=== PATIENT | male | born 1965 | race Caucasian/White ===

== ENCOUNTER 2016-10-30 14:45 | Emergency (ER) | payer OTHER ==
[~2016-10-30] VITALS: Ht 175.3 cm; Wt 57.4 kg
[~2016-10-30 14:45] MED LIST: ONDA1TAB16 PO; TRAM50 PO
[2016-10-30 14:51] VITALS: BP 103/82; PULSE 100; RESP 16; TEMP 98.2; O2SAT 96
[2016-10-30 15:44] VITALS: BP 125/83; PULSE 81; RESP 18; O2SAT 97
[2016-10-30] MEDS ORDERED: MEGE40TA PO (15:46)
[2016-10-30] MEDS ORDERED: METH40TA PO (15:46)
[2016-10-30] MEDS ORDERED: PANT40TA3 PO (15:46)
[2016-10-30 16:09] LABS: AUTOMATED NEUTROPHIL # 9.4 TH/MM3 (1.8-7.7); BASOPHIL # 0.1 TH/MM3 (0-0.2); BASOPHIL % 0.8 % (0.0-2.0); EOSINOPHIL % 0.1 % (0.0-4.0); HEMATOCRIT 49.5 % (39.0-51.0); HEMO FLAGS DIFF FINAL; LYMPH % 19.5 % (9.0-44.0); LYMPHOCYTE # 2.6 TH/MM3 (1.0-4.8); MEAN CELL VOLUME 90.3 FL (80.0-100.0); MEAN CORPUSCULAR HGB CONC 33.2 % (32.0-36.0); MONO % 7.3 % (0.0-8.0); NEUT % 72.3 % (16.0-70.0); PLATELET COUNT 228 TH/MM3 (150-450); RED BLOOD COUNT 5.48 MIL/MM3 (4.50-5.90); RED CELL DISTRIBUTION WIDTH 13.1 % (11.6-17.2); WHITE BLOOD COUNT 13.1 TH/MM3 (4.0-11.0)
[2016-10-30 16:28] LABS: CHLORIDE 94 MEQ/L (98-107); POTASSIUM 3.5 MEQ/L (3.5-5.1); SODIUM (NA) 137 MEQ/L (136-145)
[2016-10-30 16:31] LABS: ANION GAP 9 MEQ/L (5-15); BICARBONATE 33.7 MEQ/L (21.0-32.0)
[2016-10-30 16:32] LABS: BLOOD UREA NITROGEN 28 MG/DL (7-18)
[2016-10-30 16:34] LABS: ALT (GPT) 61 U/L (12-78); AST (GOT) 22 U/L (15-37)
[2016-10-30 16:35] LABS: GLOMERULAR FILTRATION RATE 71 ML/MIN (>89)
[2016-10-30 16:36] LABS: TOTAL BILIRUBIN ADULT 1.2 MG/DL (0.2-1.0)
[2016-10-30 16:37] LABS: ALKALINE PHOSPHATASE 51 U/L (45-117)
--- NOTE | 2016-10-30 16:37 | RADHPO ---
EXAM DATE/TIME: 10/30/2016 16:15 [facility] COMPARISON: No previous studies available for comparison. INDICATIONS : Palpitaions. MEDICAL HISTORY : None. SURGICAL HISTORY : None. ENCOUNTER: Initial ACUITY: 4 - 6 days PAIN SCORE: 0/10 LOCATION: Bilateral chest FINDINGS: A single view of the chest demonstrates the lungs to be symmetrically aerated without evidence of mas s, infiltrate or effusion. The cardiomediastinal contours are unremarkable. Osseous structures are intact. CONCLUSION: No acute disease. Tyler Langston MD on October 30, 2016 at 16:35 Board Certified Radiologist. This report was verified electronically.
[2016-10-30] MEDS ORDERED: IOHEXOL 350 MG/ML 10 ML VIAL (for RAD DIAG) IV ONE (16:48)
[2016-10-30 17:01] LABS: BLOOD, URINE NEG (NEG); GLUCOSE,URINE NEG (NEG); KETONE, URINE NEG (NEG); NITRITE,URINE NEG (NEG)
[2016-10-30 17:16] LABS: URINE COLOR YELLOW (YELLW/STRAW)
[2016-10-30 17:18] LABS: COMMENT (UR) CULT NOT INDICATED; CULTURE IF INDICATED CULT NOT INDICATED; SQUAMOUS EPITHELIAL CELL URINE 0-5 /hpf (0-5)
--- NOTE | 2016-10-30 17:53 | RADHPO ---
EXAM DATE/TIME: 10/30/2016 16:39 [facility] COMPARISON: No previous studies available for comparison. INDICATIONS : Vomiting. IV CONTRAST: 95 cc Omnipaque 350 (iohexol) IV ORAL CONTRAST: No oral contrast ingested. RADIATION DOSE: 5.71 CTDIvol (mGy) MEDICAL HISTORY : Hepatitis C. SURGICAL HISTORY : None. ENCOUNTER: Initial ACUITY: 3 days PAIN SCALE: 0/10 LOCATION: abdomen/pelvis TECHNIQUE: Volumetric scanning of the abdomen and pelvis was performed. Using automated exposure control and ad justment of the mA and/or kV according to patient size, radiation dose was kept as low as reasonably achievable to obtain optimal diagnostic quality images. FINDINGS: LOWER LUNGS: The visualized lower lungs are clear. Powderly fluid collection in the right cardiophrenic angle may re present unusual pericardial cyst. LIVER: Homogeneous density without lesion. There is no dilation of the biliary tree. No calcified gallston es. SPLEEN: Normal size without lesion. PANCREAS: Within normal limits. KIDNEYS: Normal in size and shape. There is no mass, stone or hydronephrosis. ADRENAL GLANDS: Within normal limits. VASCULAR: There is no aortic aneurysm. BOWEL/MESENTERY: Mild air distention of the colon in a nonobstructed pattern. No pneumoperitoneum.. There is no free intraperitoneal air or fluid. ABDOMINAL WALL: Within normal limits. RETROPERITONEUM: There is no lymphadenopathy. BLADDER: No wall thickening or mass. REPRODUCTIVE: Within normal limits. INGUINAL: There is no lymphadenopathy or hernia. MUSCULOSKELETAL: Within normal limits for patient age. CONCLUSION: 1. A 6.4 x 2.3 x 4.9 cm fluid collection in the right cardiophrenic angle may represent an unusual pe ricardial cyst. 2. Mild air distention of the colon in a nonobstructed pattern. Moderate amount of stool in the proxi mal colon 3. Otherwise, nothing acute. Aditya Diaz MD on October 30, 2016 at 17:43 Board Certified Radiologist. This report was verified electronically.
[2016-10-30 18:19] VITALS: BP 105/69; PULSE 86; RESP 18; O2SAT 95
--- NOTE | 2016-10-30 18:40 | PD ---
HPI Chief Complaint: Abdominal Pain Time Seen by Provider: 15:37 Travel History International Travel<30 days: No Contact w/Intl Traveler<30days: No Traveled to known affect area: No History of Present Illness HPI 51-year-old male presents with upper abdominal pain, weight loss and general ill feeling for the past couple of weeks. He states he went to his gastrointestinal specialist Dr. gonzalez who he follows with his hepatitis and they advised him to come here for further testing. They recommended blood work and CT imaging of the abdomen. He states that he is having no other significant complaints. Quality is pressure. Severity is moderate. He denies specific modifying factors. He denies recurrent history of this. PFS Past Medical History Hepatitis: Yes (C) Past Surgical History Other Surgery: Yes (LEFT HAND) Social History Alcohol Use: No Tobacco Use: Yes (1 PPD) Substance Use: Yes (occas clara) Allergies-Medications (Allergen,Severity, Reaction): Coded Allergies: No Known Allergies (Unverified , 10/30/16) Reported Meds & Prescriptions Reported Meds & Active Scripts Active Reported Megestrol (Megestrol Acetate) 40 Mg Tab 40 Mg PO TID Pantoprazole (Pantoprazole Sodium) 40 Mg Tab 40 Mg PO DAILY Methadone (Methadone HCl) 40 Mg Tab 110 Mg PO DAILY Review of Systems Except as stated in HPI: all other systems reviewed are Neg Physical Exam Narrative GENERAL: Thin, well-developed patient. No apparent distress SKIN: Warm and dry. HEAD: Normocephalic and atraumatic. EYES: No injection or drainage. ENT: No nasal drainage noted. NECK: Supple, trachea midline. CARDIOVASCULAR: Regular rate and rhythm RESPIRATORY: No increased effort. No accessory muscle use. GASTROINTESTINAL: Abdomen soft, mild tenderness periumbilical area, nondistended. No rebound EXTREMITIES: No edema. NEUROLOGICAL: Awake and alert. Motor and sensory grossly within normal limits. Normal speech. Data Data Last Documented VS Vital Signs Date Time Temp Pulse Resp B/P Pulse Ox O2 Delivery O2 Flow Rate FiO2 10/30/16 18:19 86 18 105/69 95 Room Air 10/30/16 14:51 98.2 Orders Complete Blood Count With Diff (10/30/16 15:37) Comprehensive Metabolic Panel (10/30/16 15:37) Urinalysis - C+S If Indicated (10/30/16 15:37) Lipase (10/30/16 15:37) Ct Abd/Pel W Iv Contrast(Rout) (10/30/16 ) Iv Access Insert/Monitor (10/30/16 15:37) Oximetry (10/30/16 15:37) Chest, Single Ap (10/30/16 ) Iohexol 350 Inj (Omnipaque 350 Inj) (10/30/16 16:48) Echo 2d Comp W/Dopp(Routine) (10/30/16 ) Labs Laboratory Tests Test 10/30/16 10/30/16 16:00 16:30 White Blood Count 13.1 TH/MM3 Red Blood Count 5.48 MIL/MM3 Hemoglobin 16.4 GM/DL Hematocrit 49.5 % Mean Corpuscular Volume 90.3 FL Mean Corpuscular Hemoglobin 30.0 PG Mean Corpuscular Hemoglobin 33.2 % Concent Red Cell Distribution Width 13.1 % Platelet Count 228 TH/MM3 Mean Platelet Volume 8.4 FL Neutrophils (%) (Auto) 72.3 % Lymphocytes (%) (Auto) 19.5 % Monocytes (%) (Auto) 7.3 % Eosinophils (%) (Auto) 0.1 % Basophils (%) (Auto) 0.8 % Neutrophils # (Auto) 9.4 TH/MM3 Lymphocytes # (Auto) 2.6 TH/MM3 Monocytes # (Auto) 1.0 TH/MM3 Eosinophils # (Auto) 0.0 TH/MM3 Basophils # (Auto) 0.1 TH/MM3 CBC Comment DIFF FINAL Differential Comment Sodium Level 137 MEQ/L Potassium Level 3.5 MEQ/L Chloride Level 94 MEQ/L Carbon Dioxide Level 33.7 MEQ/L Anion Gap 9 MEQ/L Blood Urea Nitrogen 28 MG/DL Creatinine 1.10 MG/DL Estimat Glomerular Filtration 71 ML/MIN Rate Random Glucose 98 MG/DL Calcium Level 9.0 MG/DL Total Bilirubin 1.2 MG/DL Aspartate Amino Transf 22 U/L (AST/SGOT) Alanine Aminotransferase 61 U/L (ALT/SGPT) Alkaline Phosphatase 51 U/L Total Protein 7.3 GM/DL Albumin 3.5 GM/DL Lipase 73 U/L Urine Color YELLOW Urine Turbidity CLEAR Urine pH 7.0 Urine Specific [place] 1.005 Urine Protein NEG mg/dL Urine Glucose (UA) NEG mg/dL Urine Ketones NEG mg/dL Urine Occult Blood NEG Urine Nitrite NEG Urine Bilirubin NEG Urine Leukocyte Esterase NEG Urine Squamous Epithelial 0-5 /hpf Cells Microscopic Urinalysis Comment CULT NOT INDICATED MDM Medical Decision Making Medical Screen Exam Complete: Yes Emergency Medical Condition: Yes Medical Record Reviewed: Yes (past history confirmed) Interpretation(s) CBC & BMP Diagram 10/30/16 16:00 Last 24 hours Impressions Chest X-Ray 10/30/16 0000 Signed Impressions: Service Date/Time: Sunday, October 30, 2016 16:15 - CONCLUSION: No acute disease. Tyler Langston MD Abdomen/Pelvis CT 10/30/16 0000 Signed Impressions: Service Date/Time: Sunday, October 30, 2016 16:39 - CONCLUSION: 1. A 6.4 x 2.3 x 4.9 cm fluid collection in the right cardiophrenic angle may represent an unusual pericardial cyst. 2. Mild air distention of the colon in a nonobstructed pattern. Moderate amount of stool in the proximal colon 3. Otherwise, nothing acute. Aditya Diaz MD Differential Diagnosis Renal failure, mass, diverticulitis, stone, UTI... Narrative Course Will check blood work, chest x-ray, CT scan abdominal pelvis and reevaluate CT abdomen shows possible pericardial cyst will discuss with cardiothoracic surgeon, patient updated Patient updated awaiting echocardiogram Physician Communication Physician Communication dr stephens states to check stat echo dr wilcox to reeval after stat echo Cally Leija MD Oct 30, 2016 18:40
[2016-10-30 19:43] VITALS: BP 101/68; PULSE 63; O2SAT 96
--- NOTE | 2016-10-30 20:20 | PD ---
Physical Exam Time Seen by Provider: 20:16 Narrative It is now 8:16 PM and the echocardiogram has been done and will be read by Dr. Anderson. The patient came in because of his weight loss, he was sent in by Dr. Dela Cruz. The pericardial cyst has nothing to do with the patient's weight loss. The CT scan of the abdomen/pelvis also shows mild distention of the colon in a nonobstructed pattern and moderate stool in the proximal colon. Nothing acute is noted on the CAT scan. The patient should follow-up with Dr. Dela Cruz. Data Data Last Documented VS Vital Signs Date Time Temp Pulse Resp B/P Pulse Ox O2 Delivery O2 Flow Rate FiO2 10/30/16 19:43 63 101/68 96 Room Air 10/30/16 18:19 18 10/30/16 14:51 98.2 Orders Complete Blood Count With Diff (10/30/16 15:37) Comprehensive Metabolic Panel (10/30/16 15:37) Urinalysis - C+S If Indicated (10/30/16 15:37) Lipase (10/30/16 15:37) Ct Abd/Pel W Iv Contrast(Rout) (10/30/16 ) Iv Access Insert/Monitor (10/30/16 15:37) Oximetry (10/30/16 15:37) Chest, Single Ap (10/30/16 ) Iohexol 350 Inj (Omnipaque 350 Inj) (10/30/16 16:48) Echo 2d Comp W/Dopp(Routine) (10/30/16 ) Labs Laboratory Tests Test 10/30/16 10/30/16 16:00 16:30 White Blood Count 13.1 TH/MM3 Red Blood Count 5.48 MIL/MM3 Hemoglobin 16.4 GM/DL Hematocrit 49.5 % Mean Corpuscular Volume 90.3 FL Mean Corpuscular Hemoglobin 30.0 PG Mean Corpuscular Hemoglobin 33.2 % Concent Red Cell Distribution Width 13.1 % Platelet Count 228 TH/MM3 Mean Platelet Volume 8.4 FL Neutrophils (%) (Auto) 72.3 % Lymphocytes (%) (Auto) 19.5 % Monocytes (%) (Auto) 7.3 % Eosinophils (%) (Auto) 0.1 % Basophils (%) (Auto) 0.8 % Neutrophils # (Auto) 9.4 TH/MM3 Lymphocytes # (Auto) 2.6 TH/MM3 Monocytes # (Auto) 1.0 TH/MM3 Eosinophils # (Auto) 0.0 TH/MM3 Basophils # (Auto) 0.1 TH/MM3 CBC Comment DIFF FINAL Differential Comment Sodium Level 137 MEQ/L Potassium Level 3.5 MEQ/L Chloride Level 94 MEQ/L Carbon Dioxide Level 33.7 MEQ/L Anion Gap 9 MEQ/L Blood Urea Nitrogen 28 MG/DL Creatinine 1.10 MG/DL Estimat Glomerular Filtration 71 ML/MIN Rate Random Glucose 98 MG/DL Calcium Level 9.0 MG/DL Total Bilirubin 1.2 MG/DL Aspartate Amino Transf 22 U/L (AST/SGOT) Alanine Aminotransferase 61 U/L (ALT/SGPT) Alkaline Phosphatase 51 U/L Total Protein 7.3 GM/DL Albumin 3.5 GM/DL Lipase 73 U/L Urine Color YELLOW Urine Turbidity CLEAR Urine pH 7.0 Urine Specific [place] 1.005 Urine Protein NEG mg/dL Urine Glucose (UA) NEG mg/dL Urine Ketones NEG mg/dL Urine Occult Blood NEG Urine Nitrite NEG Urine Bilirubin NEG Urine Leukocyte Esterase NEG Urine Squamous Epithelial 0-5 /hpf Cells Microscopic Urinalysis Comment CULT NOT INDICATED MDM Medical Record Reviewed: Yes Supervised Visit with CHANDLER: No Additional Instruction: As we discussed, follow-up with Dr. Dela Cruz. Med/Other Pt SpecificInfo: No Change to Meds Disposition: 01 DISCHARGE HOME Condition: Stable Dusty Pro MD Oct 30, 2016 20:20
--- NOTE | 2016-10-30 21:00 | EC ---
Study Study Date:10/30/2016 STUDY CONCLUSIONS SUMMARY - Left ventricle: The cavity size was normal. Wall thickness was normal. Systolic function was normal. The estimated ejection fraction was in the range of 50% to 55%. Wall motion was normal; there were no regional wall motion abnormalities. - Right atrium: Some off axis images appear to show a mass in the RV that is approximately 2 cm. This is not seen in the standard views. - Pericardium, extracardiac: There was no pericardial effusion. In some images there is a potential mass in the pericardium. In one image it appears john in the LV muscle. The imaging is difficult at best and it was not measured but does appear to be at least 2 cm. Consideration should be given to a cardiac MRI. If LV function is below 40, please consider prescribing an ACEI or ARB or document rationale for non-use. PROCEDURE DATA STUDY STATUS: Elective. Procedure: Transthoracic echocardiography. Image quality was good. Scanning was performed from the parasternal, apical, and subcostal acoustic windows. Study completion: The patient tolerated the procedure well. Transthoracic echocardiography. M-mode, complete 2D, complete spectral Doppler, and color Doppler. Patient status: Inpatient. CARDIAC ANATOMY LEFT VENTRICLE: The cavity size was normal. Wall thickness was normal. Systolic function was normal. The estimated ejection fraction was in the range of 50% to 55%. Wall motion was normal; there were no regional wall motion abnormalities. AORTIC VALVE: Trileaflet; normal thickness leaflets. Doppler: Transvalvular velocity was within the normal range. There was no stenosis. No regurgitation. AORTA: Aortic root: The aortic root was normal in size. MITRAL VALVE: Structurally normal valve. Doppler: Transvalvular velocity was within the normal range. There was no evidence for stenosis. Trace regurgitation. LEFT ATRIUM: The atrium was normal in size. RIGHT VENTRICLE: The cavity size was normal. Wall thickness was normal. PULMONIC VALVE: Doppler: Transvalvular velocity was within the normal range. There was no evidence for stenosis. No regurgitation. TRICUSPID VALVE: Structurally normal valve. Doppler: Transvalvular velocity was within the normal range. No regurgitation. PULMONARY ARTERY: The main pulmonary artery was normal-sized. Systolic pressure was within the normal range. RIGHT ATRIUM: Some off axis images appear to show a mass in the RV that is approximately 2 cm. This is not seen in the standard views. The atrium was normal in size. PERICARDIUM: There was no pericardial effusion. In some images there is a potential mass in the pericardium. In one image it appears to bein the LV muscle. The imaging is difficult at best and it was not measured but does appear to be at least 2 cm. SYSTEMIC VEINS: Inferior vena cava: The vessel was normal in size. BASIC MEASUREMENTS ADULT NORMAL Left ventricle LV internal dimension, ED, chordal level, 49 mm 43-52 PLAX LV internal dimension, ES, chordal level, 31.7 mm 23-38 PLAX Fractional shortening, chordal level, PLAX 35 % >29 LV posterior wall thickness, ED 7.36 mm IVS/LVPW ratio, ED 1.09 <1.3 Ventricular septum Septal thickness, ED 8.05 mm Left atrium Anterior-posterior dimension 29 mm Right ventricle RV internal dimension, ED, PLAX 19 mm 19-38 DOPPLER MEASUREMENTS ADULT NORMAL Main pulmonary artery Pressure, S 11 mm Hg =30 Aortic valve Peak velocity, S 117 cm/s Mitral valve Peak E-wave velocity 59.7 cm/s Peak A-wave velocity 43.4 cm/s Peak E/A ratio 1.4 Tricuspid valve Regurgitant peak velocity 102 cm/s Peak RV-RA gradient, S 4 mm Hg Maximal regurgitant velocity 102 cm/s Systemic veins Estimated CVP 5 mm Hg Right ventricle RV pressure, S 11 mm Hg <30 LEGEND: Mean values are shown as u=mean value. Asterisk (*) dillard values outside specified normal range. Prepared and signed by Bryanna Anderson [id number]
[2016-10-30 21:10] VITALS: BP 99/64; PULSE 89; RESP 18; O2SAT 97
== END 2016-10-30 21:56 | disposition home or self-care (01) ==
LOC: PHED 14:45
DX: R10.10 Upper abdominal pain, unspecified (principal); R63.4 Abnormal weight loss; F17.210 Nicotine dependence, cigarettes, uncomplicated; B19.20 Unspecified viral hepatitis C without hepatic coma; I31.8 Other specified diseases of pericardium
CPT/HCPCS: 71010; 74177; 80053; 81001; 83690; 85025; 93306; 99284; Q9967

== ENCOUNTER 2017-10-23 10:59 | Emergency (ER) | payer SELFPAY ==
[~2017-10-23] VITALS: Ht 180.3 cm; Wt 72.0 kg
[~2017-10-23 10:59] MED LIST changes: +MEGE40TA PO; +METH40TA PO; -ONDA1TAB16 PO; +PANT40TA3 PO; -TRAM50 PO
[2017-10-23 11:24] VITALS: BP 127/73; PULSE 118; RESP 17; TEMP 98.3; O2SAT 98
[2017-10-23 12:36] LABS: AUTOMATED NEUTROPHIL # 3.9 TH/MM3 (1.8-7.7); BASOPHIL # 0.1 TH/MM3 (0-0.2); BASOPHIL % 0.8 % (0.0-2.0); EOSINOPHIL # 0.2 TH/MM3 (0-0.4); EOSINOPHIL % 2.8 % (0.0-4.0); HEMATOCRIT 38.2 % (39.0-51.0); HEMOGLOBIN 12.6 GM/DL (13.0-17.0); LYMPHOCYTE # 1.7 TH/MM3 (1.0-4.8); MEAN CELL VOLUME 79.3 FL (80.0-100.0); MEAN CORPUSCULAR HEMOGLOBIN 26.1 PG (27.0-34.0); MEAN CORPUSCULAR HGB CONC 32.9 % (32.0-36.0); MEAN PLATELET VOLUME 7.5 FL (7.0-11.0); MONO % 9.8 % (0.0-8.0); MONOCYTE # 0.6 TH/MM3 (0-0.9); NEUT % 60.6 % (16.0-70.0); PLATELET COUNT 221 TH/MM3 (150-450); RED BLOOD COUNT 4.82 MIL/MM3 (4.50-5.90); RED CELL DISTRIBUTION WIDTH 17.1 % (11.6-17.2); WHITE BLOOD COUNT 6.5 TH/MM3 (4.0-11.0)
--- NOTE | 2017-10-23 12:42 | PD ---
HPI Chief Complaint: Edema Time Seen by Provider: 12:39 Travel History International Travel<30 days: No Contact w/Intl Traveler<30days: No Traveled to known affect area: No History of Present Illness HPI This is a 52-year-old male who reports a history of hepatitis C and "borderline cirrhosis." He presents for evaluation of bilateral foot edema. Symptoms started 2 weeks ago. He reports that symptoms come and go. He reports that he has been using an [id number] diuretic with minimal relief. He denies any swelling in the calves, thighs. He denies any shortness of breath, chest pain, abdominal pain, nausea or vomiting, fevers or chills, recent illness. He reports that he recently moved here from [facility] and does not have a local primary care physician. He has no other complaints at this time. [facility] Past Medical History Hepatitis: Yes (C) Past Surgical History Other Surgery: Yes (LEFT HAND) Social History Alcohol Use: No Tobacco Use: Yes (1 PPD) Substance Use: Yes (tom elizabeth) Allergies-Medications (Allergen,Severity, Reaction): Coded Allergies: No Known Allergies (Unverified Adverse Reaction, Unknown, 10/23/17) Reported Meds & Prescriptions Reported Meds & Active Scripts Active Potassium Chloride ER (Potassium Chloride) 20 Meq Tab 20 Meq PO DAILY Lasix (Furosemide) 20 Mg Tab 20 Mg PO DAILY Review of Systems Except as stated in HPI: all other systems reviewed are Neg Physical Exam Narrative GENERAL: Well-developed well-nourished male in no acute distress SKIN: Warm and dry. HEAD: Atraumatic. Normocephalic. EYES: Pupils equal and round. No scleral icterus. No injection or drainage. ENT: No nasal bleeding or discharge. Mucous membranes pink and moist. NECK: Trachea midline. No JVD. CARDIOVASCULAR: Regular rate and rhythm. No murmur appreciated. RESPIRATORY: No accessory muscle use. Clear to auscultation. Breath sounds equal bilaterally. GASTROINTESTINAL: Abdomen soft, non-tender, nondistended. Hepatic and splenic margins not palpable. MUSCULOSKELETAL: No obvious deformities. Trace pedal edema bilaterally. There is no pitting edema. There is no tenderness to palpation to the calves or thighs. Negative Homans. 2+ dorsalis pedis pulse bilaterally. NEUROLOGICAL: Awake and alert. No obvious cranial nerve deficits. Motor grossly within normal limits. Normal speech. Data Data Last Documented VS Vital Signs Date Time Temp Pulse Resp B/P (MAP) Pulse Ox O2 Delivery O2 Flow Rate FiO2 10/23/17 12:56 96 16 114/74 (87) 100 Room Air 10/23/17 11:24 98.3 Orders Orders Complete Blood Count With Diff (10/23/17 11:46) Comprehensive Metabolic Panel (10/23/17 11:46) B-Type Natriuretic Peptide (10/23/17 11:46) Potassium Chloride (Kcl) (10/23/17 13:15) B-Type Natriuretic Peptide (10/23/17 13:10) Ed Discharge Order (10/23/17 13:22) Labs Laboratory Tests Test 10/23/17 12:05 White Blood Count 6.5 TH/MM3 Red Blood Count 4.82 MIL/MM3 Hemoglobin 12.6 GM/DL Hematocrit 38.2 % Mean Corpuscular Volume 79.3 FL Mean Corpuscular Hemoglobin 26.1 PG Mean Corpuscular Hemoglobin Concent 32.9 % Red Cell Distribution Width 17.1 % Platelet Count 221 TH/MM3 Mean Platelet Volume 7.5 FL Neutrophils (%) (Auto) 60.6 % Lymphocytes (%) (Auto) 26.0 % Monocytes (%) (Auto) 9.8 % Eosinophils (%) (Auto) 2.8 % Basophils (%) (Auto) 0.8 % Neutrophils # (Auto) 3.9 TH/MM3 Lymphocytes # (Auto) 1.7 TH/MM3 Monocytes # (Auto) 0.6 TH/MM3 Eosinophils # (Auto) 0.2 TH/MM3 Basophils # (Auto) 0.1 TH/MM3 CBC Comment DIFF FINAL Differential Comment Blood Urea Nitrogen 9 MG/DL Creatinine 1.03 MG/DL Random Glucose 158 MG/DL Total Protein 7.8 GM/DL Albumin 3.2 GM/DL Calcium Level 9.0 MG/DL Alkaline Phosphatase 68 U/L Aspartate Amino Transf (AST/SGOT) 70 U/L Alanine Aminotransferase (ALT/SGPT) 97 U/L Total Bilirubin 0.4 MG/DL Sodium Level 141 MEQ/L Potassium Level 3.3 MEQ/L Chloride Level 107 MEQ/L Carbon Dioxide Level 26.6 MEQ/L Anion Gap 7 MEQ/L Estimat Glomerular Filtration Rate 76 ML/MIN B-Type Natriuretic Peptide 5 PG/ML MDM Medical Decision Making Medical Screen Exam Complete: Yes Emergency Medical Condition: Yes Medical Record Reviewed: Yes Differential Diagnosis Dependent edema, hypoalbuminemia, nephrotic syndrome, DVT, CHF Narrative Course 52-year-old male who reports a history of hepatitis C and possible cirrhosis presents with 2 weeks of bilateral foot edema which comes and goes. Currently he only has trace nonpitting pedal edema bilaterally. CBC reveals a hemoglobin of 12.6 otherwise unremarkable. CMP potassium 3.3, 40 mEq oral potassium chloride ordered. Glucose is 158. AST 70, ALT 98. Albumin is 3.2. At this point time the plan is to discharge patient to follow-up with primary care physician on an outpatient basis. He will be discharged with low-dose Lasix and potassium chloride prescriptions. Diagnosis Primary Impression: Edema Referrals: [facility] Additional Instructions: Follow-up with a primary care physician such as [facility]. Compression stockings and elevation. Medication as prescribed. Return for any emergent medical conditions. Med/Other Pt SpecificInfo: Prescription(s) given Scripts Potassium Chloride ER (Potassium Chloride ER) 20 Meq Tab 20 MEQ PO DAILY for Electrolyte Replacement, #30 TAB 0 Refills Prov: Ronak Manriquez MD 10/23/17 Furosemide (Lasix) 20 Mg Tab 20 MG PO DAILY, #30 TAB 0 Refills Prov: Ronak Manriquez MD 10/23/17 Disposition: 01 DISCHARGE HOME Condition: Stable Marc Connors Oct 23, 2017 12:42
[2017-10-23 12:56] VITALS: BP 114/74; PULSE 96; RESP 16; O2SAT 100
[2017-10-23 13:07] LABS: ALBUMIN 3.2 GM/DL (3.4-5.0); AST (GOT) 70 U/L (15-37); BICARBONATE 26.6 MEQ/L (21.0-32.0); BLOOD UREA NITROGEN 9 MG/DL (7-18); CHLORIDE 107 MEQ/L (98-107); CREATININE 1.03 MG/DL (0.60-1.30); GLOMERULAR FILTRATION RATE 76 ML/MIN (>89); GLUCOSE,RANDOM 158 MG/DL (74-106); SODIUM (NA) 141 MEQ/L (136-145)
[2017-10-23 13:10] LABS: ALKALINE PHOSPHATASE 68 U/L (45-117); ALT (GPT) 97 U/L (12-78); TOTAL BILIRUBIN ADULT 0.4 MG/DL (0.2-1.0); TOTAL PROTEIN 7.8 GM/DL (6.4-8.2)
[2017-10-23] MEDS ORDERED: POTASSIUM CHLORIDE 20 MEQ CONTROLLED RELEASE TAB PO ONE (13:15)
[2017-10-23] MEDS ORDERED: POTA-163 PO (13:18)
[2017-10-23] MEDS ORDERED: FURO1TAB62 PO (13:18)
== END 2017-10-23 13:58 | disposition home or self-care (01) ==
LOC: NEPC 10:59
DX: R60.0 Localized edema (principal); F12.90 Cannabis use, unspecified, uncomplicated; F17.200 Nicotine dependence, unspecified, uncomplicated; Z86.19 Personal history of other infectious and parasitic diseases
CPT/HCPCS: 80053; 83880; 85025; 99283